=== PATIENT | female | born 1990 | race Hispanic/Latino ===

== ENCOUNTER 2025-05-01 04:09 | Emergency (ER) | payer OTHER ==
[~2025-05-01] VITALS: Ht 162.6 cm; Wt 70.3 kg
[2025-05-01] MEDS ORDERED: KETOROLAC TROMETHAMINE 30 MG/ML VIAL ONE (04:25)
[2025-05-01] MEDS: ONDANSETRON HCL INJ 2MG/ML 2ML 2 MG/ML VIAL IV STA (04:29)
[2025-05-01] MEDS: KETOROLAC TROMETHAMINE 30 MG/ML VIAL IV STA (04:29)
[2025-05-01] MEDS: SODIUM CHLORIDE 0.9% 1000ML 1,000 ML IV STA (04:29)
[2025-05-01 04:42] LABS: BASOPHILS % 1.0 % (0.0-1.0); EOSINOPHILS % 1.9 % (0.0-6.0); LYMPHOCYTES % 25.9 % (18.0-39.1); MONOCYTES % 6.9 % (4.4-11.3); NEUTROPHILS % 64.0 % (38.7-80.0); RED CELL DISTRIBUTION WIDTH 12.2 % (11.7-14.4)
[2025-05-01 04:56] LABS: LEUKOCYTE ESTERASE ,URINE NEGATIVE (NEGATIVE); PREGNANCY TEST, URINE NEGATIVE (NEGATIVE); PROTEIN,URINE DIPSTICK TRACE (NEGATIVE); URINE UROBILINOGEN 0.2 mg/dL (0.2 - 1)
[2025-05-01 05:04] LABS: WBC,URINE (MAN) 0-5 /HPF (0-5)
[2025-05-01 05:06] LABS: EPITHELIAL CELLS,URINE MODERATE /LPF
[2025-05-01 05:07] LABS: EST GLOMERULAR FILTRATION RATE 82.0 ML/MIN (>=60)
[2025-05-01] MEDS ORDERED: IOPAMIDOL 370 MG/ML 100 ML INFUS..BTL INJ ONE (05:08)
[2025-05-01] MEDS: Morphine 4mg INJECTION 4 MG/ML INJ IV STA (05:12)
[2025-05-01 08:00] VITALS: BP 112/80; PULSE 55; RESP 18
[2025-05-01 09:45] VITALS: PULSE 58; RESP 16; TEMP 98.5; O2SAT 100
[2025-05-01] MEDS: Morphine 4mg INJECTION 4 MG/ML INJ IV ONE (10:33)
== END 2025-05-01 10:45 | disposition other institution (70) ==
LOC: ER 04:22
DX: R10.31 Right lower quadrant pain (principal); N83.201 Unspecified ovarian cyst, right side; N83.511 Torsion of right ovary and ovarian pedicle; R19.09 Other intra-abdominal and pelvic swelling, mass and lump; R11.2 Nausea with vomiting, unspecified
CPT/HCPCS: 36415; 74177; 76830; 76856; 80053; 81001; 81025; 83690; 85025; 93976; 99284; J1885; J2270; J2405; J7030; Q9967